=== PATIENT | female | born 1935 | race Caucasian/White ===

== ENCOUNTER 2018-01-16 13:59 | Emergency (ER) | payer OTHER, MEDICARE ==
[2018-01-16 14:06] VITALS: BP 139/68
--- NOTE | 2018-01-16 14:32 | EDPHY ---
H & P Stated Complaint: Has concerns with continuing symptoms of UTI. Time Seen by Provider: 01/16/18 14:31 - Personal History Current Tetanus Diphtheria and Acellular Pertussis (TDAP): Yes - Medical/Surgical History Hx Asthma: No Hx Chronic Respiratory Disease: No Hx Diabetes: No Hx Cardiac Disease: No Hx Renal Disease: No Hx Cirrhosis: No Hx Alcoholism: No Hx HIV/AIDS: No Hx Splenectomy or Spleen Trauma: No Other PMH: Denies - Social History Smoking Status: Never smoked Constitutional: Initial Vital Signs Temperature (C) 36.7 C 01/16/18 14:00 Heart Rate 86 01/16/18 14:00 Respiratory Rate 16 01/16/18 14:00 Blood Pressure 139/68 H 01/16/18 14:00 O2 Sat (%) 93 01/16/18 14:00 O2 Delivery Mode Room Air Allergies/Adverse Reactions: No Known Allergies Allergy (Unverified 01/16/18 14:06) Home Medications: Medication Instructions Recorded NK [No Known Home Meds] 01/16/18 Medical Decision Making - Diagnostics Imaging Results: Imaging Impressions Abdomen/Pelvis Ultrasound 01/16/18 14:41 Impression: 1. No hydronephrosis. 2. Postvoid bladder residual 152 mL. Findings and recommendations discussed with Emergency Department physician, Trevin Wright MD at 15:33 hour, 01/16/2018. Final report concurs with initial preliminary interpretation. Imaging: Discussed imaging studies w/ orthopedically impaired teacher Radiologist, I viewed and interpreted images myself ED Course/Re-evaluation: CHIEF COMPLAINT: UTI symptoms HISTORY OF PRESENT ILLNESS: The patient is an 82 y/o female complaining of UTI symptoms for several days. The patient was originally flying to [place] from [place] when she developed the symptoms. She initially went to [facility] and was diagnosed with a UTI and had low O2Sats. She was prescribed a 3 day course of Keflex, but this did not improve her symptoms. As her symptoms did not improve she presented to [facility] and was prescribed Ceftin. They did not preform a culture at either ER visit. She also started taking Azo after starting Ceftin. Her UTI symptoms did improve for a short period of time after starting each antibiotic, but they have not completely resolved. Since starting the antibiotics, she has also developed a small rash on her hand and the corners of her mouth. She is no longer feeling febrile. She is concerned about her symptoms as she is going to her grandson's wedding in [place]. No headache, chest pain, shortness of breath, abdominal pain, bowel complaints, numbness, paresthesias. REVIEW OF SYSTEMS: A comprehensive 10 system review of systems is otherwise negative aside from elements mentioned in the history of present illness and medical decision making. PHYSICAL EXAM: HR, BP, O2 Sat, RR. Temp noted General Appearance: Alert, well hydrated, appropriate, and non-toxic appearing. Head: Atraumatic without scalp tenderness or obvious injury Eyes: Pupils equal, round, reactive to light and accommodation, EOMI, no trauma , no injection. Ears: Clear bilaterally, no perforation, normal landmarks Nose: Atraumatic, no rhinorrhea, clear. Throat: There is no erythema or exudates, no lesions, normal tonsils, mucus membranes moist. Neck: Supple, 2+ carotid upstroke, nontender, no lymphadenopathy. Respiratory: No retractions, no distress, no wheezes, and no accessory muscle use. Lungs are clear to auscultation bilaterally. Cardiovascular: Regular rate and rhythm, no murmurs, rubs, or gallops. Bilateral carotid, radial, dorsalis pedis, and posterior tibial pulses intact. Good capillary refill all extremities. Gastrointestinal: Abdomen is soft, nontender, non-distended, no masses, no rebound, no guarding, no peritoneal signs. Musculoskeletal: Normal active ROM of all extremities, atraumatic. Neurological: Alert, appropriate, and interactive. Non-focal neuro. Skin: No rashes, good turgor, no nodules on palpation. Past medical history: Denies Past surgical history: Denies Family history: Denies Social history: Originally from [place], visiting [place], daughter at bedside DIAGNOSTICS/PROCEDURES/CRITICAL CARE TIME: Kidney US: No acute findings. DIFFERENTIAL DIAGNOSIS: The differential diagnosis for the patient's fever included but was not limited to borderline exertional hypoxemia, pneumonia, urinary tract infection, viral syndrome, meningitis, and sepsis. MEDICAL DECISION MAKING: The patient is an 82 y/o female presenting with UTI symptoms for several days. Her symptoms have not improved after staring Keflex and Ceftin. Her exam is unremarkable. Labs, UA, and kidney US ordered; 1L IV NS administered. 1514: Patient's O2Sats are at 92%. I consulted with Beatriz from case management regarding setting up supplemental O2 for the patient. 1533: I spoke with the radiologist who reports there are no acute findings on the kidney US. The patient has unremarkable lab work. 1552: Reassessed patient and discussed laboratory and imaging findings. I have advised her to use supplemental oxygen for her borderline exertional hypoxemia. She is comfortable with paying out of pocket for the oxygen. Return precautions provided; patient is comfortable with this plan. - Data Points Laboratory Results: Laboratory Results 01/16/18 14:55 01/16/18 14:55 01/16/18 01/16/18 01/16/18 14:55 14:55 14:10 WBC 7.41 10^3/uL 10^3/uL (3.80-9.50) RBC 4.53 10^6/uL 10^6/uL (4.18-5.33) Hgb 13.2 g/dL g/dL (12.6-16.3) Hct 39.7 % % (38.0-47.0) MCV 87.6 fL fL (81.5-99.8) MCH 29.1 pg pg (27.9-34.1) MCHC 33.2 g/dL g/dL (32.4-36.7) RDW 14.7 % % (11.5-15.2) Plt Count 299 10^3/uL 10^3/uL (150-400) MPV 10.2 fL fL (8.7-11.7) Neut % (Auto) 56.8 % % (39.3-74.2) Lymph % (Auto) 26.3 % % (15.0-45.0) [place] % (Auto) 11.6 % % (4.5-13.0) Eos % (Auto) 4.2 % % (0.6-7.6) Baso % (Auto) 0.8 % % (0.3-1.7) Nucleat RBC Rel Count 0.0 % % (0.0-0.2) Absolute Neuts (auto) 4.21 10^3/uL 10^3/uL (1.70-6.50) Absolute Lymphs (auto) 1.95 10^3/uL 10^3/uL (1.00-3.00) Absolute Monos (auto) 0.86 10^3/uL H 10^3/uL (0.30-0.80) Absolute Eos (auto) 0.31 10^3/uL 10^3/uL (0.03-0.40) Absolute Basos (auto) 0.06 10^3/uL 10^3/uL (0.02-0.10) Absolute Nucleated RBC 0.00 10^3/uL 10^3/uL (0-0.01) Immature Gran % 0.3 % % (0.0-1.1) Immature Gran # 0.02 10^3/uL 10^3/uL (0.00-0.10) Sodium 141 mEq/L mEq/L (135-145) Potassium 3.9 mEq/L mEq/L (3.3-5.0) Chloride 105 mEq/L mEq/L (97-110) Carbon Dioxide 26 mEq/l mEq/l (22-31) Anion Gap 10 mEq/L mEq/L (6-14) BUN 14 mg/dL mg/dL (7-23) Creatinine 0.7 mg/dL mg/dL (0.6-1.0) Estimated GFR > 60 Glucose 92 mg/dL mg/dL (70-100) Calcium 9.7 mg/dL mg/dL (8.5-10.4) Urine Color YELLOW Urine Appearance CLEAR Urine pH 6.0 (5.0-7.5) Ur Specific [place] 1.004 (1.002-1.030) Urine Protein NEGATIVE (NEGATIVE) Urine Ketones NEGATIVE (NEGATIVE) Urine Blood NEGATIVE (NEGATIVE) Urine Nitrate NEGATIVE (NEGATIVE) Urine Bilirubin NEGATIVE (NEGATIVE) Urine Urobilinogen NEGATIVE EU EU (0.2-1.0) Ur Leukocyte Esterase NEGATIVE (NEGATIVE) Urine RBC 1-3 /hpf /hpf (0-3) Urine WBC 1-3 /hpf /hpf (0-3) Ur Epithelial Cells TRACE /lpf /lpf (NONE-1+) Urine Mucus TRACE /lpf /lpf (NONE-1+) Urine Glucose NEGATIVE (NEGATIVE) Medications Given: Discontinued Medications Sodium Chloride (Ns) 1,000 mls @ 0 mls/hr IV EDNOW ONE; Wide Open PRN Reason: Protocol Stop: 01/16/18 14:41 Last Admin: 01/16/18 14:55 Dose: 1,000 mls Departure - Departure Disposition: Home, Routine, Self-Care Clinical Impression: Hypoxemia Urinary tract infection Qualifiers: Urinary tract infection type: site unspecified Hematuria presence: without hematuria Qualified Code(s): N39.0 - Urinary tract infection, site not specified Condition: Good Instructions: Urinary Tract Infection in Women (ED), Hypoxemia (DC) Additional Instructions: 1. Keep taking your antibiotics as prescribed. 2. Use supplemental oxygen. I recommend using 1-2L as needed. 3. Follow-up with your primary doctor within 72 hours. 4. Return to the Emergency Department for fever, chest pain, shortness of breath , increasing pain or other worsening of condition. Referrals: [facility]AL[facility] [Other] - As per Instructions Report Scribed for: Trevin Wright Report Scribed by: Demetrice Camarillo Date of Report: 01/16/18 Time of Report: 14:34
[2018-01-16] MEDS ORDERED: NS 1,000 ML IV ONE (14:40)
[2018-01-16 15:05] LABS: PLATELET COUNT 299 10^3/uL (150-400)
--- NOTE | 2018-01-16 16:59 | ASMTCMCOM ---
CM Note CM Note Notes: Patient traveling from [place] for her grandson's wedding in [place]. O2 order written and faxed to [facility] after confirming that [facility] will deliver O2 this evening to provided address in [place]. Patient's daughter, Payton is point of contact for patient and [facility] Date Signed: 01/16/2018 04:59 PM Electronically Signed By:Beatriz Ngo RN
== END 2018-01-16 16:12 | disposition home or self-care (01) ==
DX: N39.0 Urinary tract infection, site not specified (principal); R09.02 Hypoxemia; E86.9 Volume depletion, unspecified